=== PATIENT | female | born 1975 | race Caucasian/White ===

== ENCOUNTER 2018-03-14 22:28 | Emergency (ER) | payer SELFPAY ==
[~2018-03-14] VITALS: Ht 154.9 cm; Wt 73.7 kg
[2018-03-14] MEDS ORDERED: PROM25 (23:36)
[2018-03-14] MEDS ORDERED: LITH300C ×2 (23:36→23:37)
[2018-03-14] MEDS ORDERED: TRAZ50 (23:37)
== END 2018-03-14 23:51 | disposition left against medical advice (07) ==
LOC: ER 22:28
DX: Z53.21 Procedure and treatment not carried out due to patient leaving prior to being seen by health care provider (principal)